=== PATIENT | female | born 2000 | race African-American/Black ===

== ENCOUNTER 2020-04-12 12:22 | Emergency (ER) | payer OTHER ==
[~2020-04-12] VITALS: Ht 157.5 cm; Wt 63.0 kg
[2020-04-12 12:31] VITALS: BP 119/82
[2020-04-12] MEDS ORDERED: TYLENOL EXTRA500 MG ORAL (12:51)
--- NOTE | 2020-04-12 12:55 | Emergency Room Report ---
History of Present Illness General Chief Complaint: Headache Source: Patient Present Illness HPI Disclaimer: Please note that this report is being documented using [employer] technology. This can lead to erroneous entry secondary to incorrect interpretation by the dictating instrument. HPI: 20-year-old female no reported medical history presents after head injury at work. Patient stood up quickly and hit the front of her head against close line. No loss of consciousness. Reports generalized frontal headache. Denies changes in vision. Denies nausea, vomiting. No seizure activity. Remembers the entire event. Does not take blood thinners. No prior history of head injury. Denies neck or back pain or other trauma. Sent in for evaluation as it occurred at work. LMP 2 weeks ago PMH: Denied PSH: Denied Allergies: Denied Social Hx: Denied Allergies: Coded Allergies: No Known Allergies (Unverified , 04/12/20) COVID-19 Screening Contact w/high risk pt: No Experienced COVID-19 symptoms?: No COVID-19 Testing performed SEATER GRINDER: No Patient History Last Menstrual Period: 03/28/20 Now: No Nursing Documentation-PMH Past Medical History: No Stated History Review of Systems All Other Systems: negative except mentioned in HPI Physical Exam Vital Signs Date Time Temp Pulse Resp B/P (MAP) Pulse Ox O2 Delivery O2 Flow Rate FiO2 04/12/20 12:31 97.9 85 18 119/82 (94) 97 Room Air General: Awake and alert, no acute distress HEENT: Normocephalic, atraumatic. There are no scalp or face hematomas, lacerations or abrasions. No tenderness or soft tissue swelling over the facial bones. EOMI. PERRLA. No willingham sign. No hemotympanum. Neck: Supple, trachea midline. Arrives without cervical collar Resp: Normal work of breathing. Skin: Intact. No abrasions, laceration or rash over the exposed skin MSK: Normal tone and bulk. No obvious deformity. Moving all extremities. Ambulating without difficulty. Neuro: Awake and alert. Mentating appropriately. Sensation is intact to light touch over the dermatomes of the upper and lower extremities Spine: There is no tenderness, step-off or deformity in the cervical, thoracic or lumbosacral spine. Medical Decision Making Diagnostic Impression: Primary Impression: Head injury, acute, without loss of consciousness ER Course 20-year-old female presents for evaluation after a head injury at work. Low suspicion for intracranial injury. Low risk by [place] head CT criteria. Do not believe she requires emergent imaging or work-up. She is well-appearing stable vital signs no distress at this time. Stable for outpatient follow-up. Return precautions discussed. She understands and agrees with the treatment plan. Last Vital Signs Date Time Temp Pulse Resp B/P (MAP) Pulse Ox O2 Delivery O2 Flow Rate FiO2 04/12/20 12:31 97.9 85 18 119/82 (94) 97 Room Air Disposition: HOME, SELF-CARE Condition: Stable Scripts Acetaminophen* (TYLENOL EXTRA STRENGTH*) 500 Mg Tablet 500 MG ORAL Q8H PRN for Prn Headache/Temp > 101, #30 TAB 0 Refills Prov: Jaya Parish MD 04/12/20 Referrals: [facility] Departure Forms: Return to Work Return to Work Date: Apr 14, 2020 Patient Instructions: Head Injury, Adult Additional Instructions: Please follow-up with your primary care doctor in the next 1 to 3 days to discuss this emergency department visit and for reevaluation. Refrain from participating in any contact sports, climbing on high ladders, engaging in any activity that could result in repeat head injury until you are cleared to return to these activities by a physician. Limit screen time, TV time to avoid worsening headaches. Get plenty of sleep, eat regular meals, maintain adequate levels of hydration. If you have any new or worsening symptoms please return to the emergency department for reevaluation. Please note that this report is being documented using [employer] technology. This can lead to erroneous entry secondary to incorrect interpretation by the dictating instrument. Jaya Parish MD Apr 12, 2020 12:55
[2020-04-12] MEDS ORDERED: Acetaminophen 500mg (ES) tab ORAL ONE (13:00)
--- NOTE | 2020-04-12 13:15 | NUR ---
Patient presenting to the ER witha headache. She reported that she was at work last night, bent over for something and hit her head and have been having a headache since. No N/V. No syncopal episodes. AAOX4. NKA. No significant medical issues.
== END 2020-04-12 13:23 | disposition home or self-care (01) ==
LOC: EMR 13:00
DX: S09.90XA Unspecified injury of head, initial encounter (principal); X58.XXXA Exposure to other specified factors, initial encounter; Y92.9 Unspecified place or not applicable
CPT/HCPCS: 99282

== ENCOUNTER 2020-04-17 14:49 | Emergency (ER) | payer OTHER ==
[~2020-04-17] VITALS: Ht 162.6 cm; Wt 62.6 kg
[~2020-04-17 14:49] MED LIST: TYLENOL EXTRA500 MG ORAL
[2020-04-17 15:27] VITALS: BP 110/60
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
--- NOTE | 2020-04-17 15:48 | Emergency Room Report ---
History of Present Illness General Chief Complaint: Headache Source: Patient Present Illness HPI Patient sustained a head injury by walking to a clothes rack and hit her in the forehead. The next day she noticed that she was having blurred vision in the right eye. She has been seen by certified peer specialist who said that they noticed difference between the 2 eyes. She also has some photophobia. She has a history of migraines in the past. This feels this is different to her. She denies any nausea or vomiting. At the time of the head injury she did not lose consciousness. There is no weakness or numbness. She has been taking Tylenol. She still has pain in her head at this time. She rates the pain 6/10 and constant and aching. It does not radiate. Last menstruation was March 28 and normal for her. She does not believe she is at this time. Patient denies exposure to Covid positive contacts. Allergies: Coded Allergies: No Known Allergies (Unverified , 04/12/20) COVID-19 Screening Contact w/high risk pt: No Experienced COVID-19 symptoms?: No COVID-19 Testing performed CLIENT SALES AND SERVICE OFFICER: No Patient History Past Medical History: see triage record, migraines Social History: Denies: smoking Social History Narrative Works in retail Now: No Reviewed Nursing Documentation: PMH: Agreed; PSxH: Agreed Nursing Documentation-PMH Past Medical History: No Stated History Review of Systems Constitutional: Denies: chills, fever Eye: Reports: see HPI Gastrointestinal: Reports: see HPI Genitourinary: Reports: see HPI Musculoskeletal: Reports: see HPI Skin: Denies: rash Neurological: Reports: see HPI Physical Exam Vital Signs Date Time Temp Pulse Resp B/P (MAP) Pulse Ox O2 Delivery O2 Flow Rate FiO2 04/17/20 15:20 98.1 66 18 110/60 (77) 98 Room Air Sp02 EP Interpretation: reviewed, normal General Appearance: well appearing, no apparent distress, GCS 15 Head: normocephalic, other Eyes: bilateral eye normal inspection, bilateral eye PERRL, bilateral eye EOMI, bilateral eye visual acuity - 20/30 right, 20/20 left, bilateral eye Fundiscopic - Normal bilaterally ENT: moist mucus membranes Neck: normal inspection, full range of motion, supple Respiratory: normal inspection Cardiovascular #1: regular rate, rhythm Gastrointestinal: normal inspection Musculoskeletal: gait/station normal Neurologic: alert, motor strength/tone normal, national sales representative III-XII nml as tested, DTRs symmetric, oriented x3, sensory intact, cerebellar normal, speech normal Psychiatric: mood/affect normal Skin: normal color, no rash, warm/dry Medical Decision Making Diagnostic Impression: Primary Impression: Concussion Qualified Codes: S06.0X0D - Concussion without loss of consciousness, subsequent encounter Additional Impression: Blurred vision, right eye ER Course Patient sustained a head injury April 12 complaining of altered vision in her right eye. Differential includes postconcussive syndrome, intracerebral process, migraine variant amongst others. She has been seen by an certified peer specialist however has referral for repeat evaluation. Eye exam is normal at this time including normal funduscopic exam. Based on symptomatology CT of the head is indicated. In addition the patient will be given low-dose of Motrin. CT of the head normal. Patient with some improvement in symptoms however still complains of blurred vision. Discussed findings with patient. Discussed the need for outpatient follow-up. No medical emergency at this time. Patient stable for outpatient observation and treatment. CT/MRI/US Diagnostic Results CT/MRI/US Diagnostic Results : Imaging Test Ordered: head Impression no abnormalities Last Vital Signs Date Time Temp Pulse Resp B/P (MAP) Pulse Ox O2 Delivery O2 Flow Rate FiO2 04/17/20 16:53 97.8 77 16 120/80 98 Room Air Status: improved Disposition: HOME, SELF-CARE Condition: Improved Scripts Ibuprofen* (MOTRIN*) 600 Mg Tablet 600 MG ORAL Q6H PRN for FOR PAIN, #20 TAB 0 Refills Prov: Willem Cardona MD 04/17/20 Referrals: NOT CHOSEN IPA/,REFERRING (PCP) Willem Cardona MD Apr 17, 2020 15:48
--- NOTE | 2020-04-17 16:00 | NUR ---
to ct scan via [place]
--- NOTE | 2020-04-17 16:18 | Diagnostic Imaging Report ---
EXAM: CT CT Head no Contrast INDICATION: Trauma with head pain. TECHNIQUE: Axial images of the brain were obtained with subsequent sagittal and coronal reformats. All CT scans at this facility are performed using dose modulation techniques as appropriate to a performed exam including the following: automated exposure control with adjustment of the mA and/or kV according to patient size. COMPARISON STUDY: None. RADIATION DOSE: CTDIvol: 53.4 mGy DLP: 858.5 mGy-cm Dose information generated by the CT scanner is available in PACS. FINDINGS: There is normal symmetry and normal wilkinson-white differentiation. There is no acute large territory cortical infarct, hemorrhage, mass effect or shift. Ventricles and cisterns as well as brainstem and posterior fossa appear unremarkable. The sellar region is normal. Sinuses, mastoid air cells and bony calvarium appear intact. IMPRESSION: NO ACUTE INTRACRANIAL ABNORMALITY.
[2020-04-17] MEDS ORDERED: IBUPROFEN600 M1 ORAL (16:42)
--- NOTE | 2020-04-17 16:50 | NUR ---
back from ct waiting for results
[2020-04-17 16:53] VITALS: BP 120/80
--- NOTE | 2020-04-17 16:57 | NUR ---
discharged home with instruction and rx follow up with pmd
== END 2020-04-17 16:57 | disposition home or self-care (01) ==
LOC: EMR 15:28
DX: S06.0X0A Concussion without loss of consciousness, initial encounter (principal); H53.8 Other visual disturbances; W22.8XXA Striking against or struck by other objects, initial encounter; Y93.9 Activity, unspecified; Y92.9 Unspecified place or not applicable
CPT/HCPCS: 70450; 99284